=== PATIENT | female | born 1945 | race Caucasian/White ===

== ENCOUNTER 2016-05-14 07:11 | Day surgery (SDC) | payer MEDICARE, OTHER ==
[~2016-05-14] VITALS: Ht 170.2 cm; Wt 81.7 kg
[~2016-05-14 07:11] MED LIST: ALBU8.5H2 INHALATION; DOXY100C2 PO; FLUO10TA PO; HYDR25TA4 PO; LOSA100T29 PO; OMEP20CA11 PO; Sodium Chloride LOK Flush 10 mL Syringe IV PRN; fentaNYL-PF 50 mCg/mL 2 mL Inj IVPUSH PRN
[2016-05-14 07:36] VITALS: BP 145/80; PULSE 70; RESP 14; O2SAT 98
[2016-05-14] MEDS ORDERED: CETI10CA PO (07:40)
[2016-05-14] MEDS: 0.9% Sodium Chloride 1,000 ML IV SCH ×2 (08:02→08:30)
[2016-05-14 08:43] VITALS: BP 107/62; PULSE 60; RESP 14; O2SAT 94
[2016-05-14 08:53] VITALS: BP 113/71; PULSE 84; RESP 16; O2SAT 95
--- NOTE | 2016-05-14 09:03 | ENDO ---
[address] [address] ENDOSCOPY PROCEDURE PATIENT: BO ZABALA : 1945 MR#: [id number] ADMIT: 05/14/2016 JOB ID: [id number] DATE: 05/14/2016 PRIMARY PROVIDER: Alli Perez MD PROCEDURE: Colonoscopy with cold forceps polypectomies and biopsy. INDICATIONS: A 70-year-old female with a family history of colon cancer and a personal history of colon polyps returning for surveillance. EQUIPMENT: PCF H 180 AL. SEDATION: 1. 4 mg Versed. 2. 75 mcg fentanyl. COMPLICATIONS: None identified. BOWEL PREPARATION: Excellent. PROCEDURAL INFORMATION: After the risks and benefits were explained, written and verbal informed consent was obtained. The patient was brought into the endoscopy suite and placed into the left lateral decubitus position. Sedation was achieved as above. A digital rectal examination accomplished. This revealed the presence of moderate internal, external, nonbleeding, nonthrombosed hemorrhoids. The scope was introduced into the rectum and advanced to the cecum as identified by the appendiceal orifice and ileocecal valve. The scope was slowly withdrawn to carefully examine the mucosa for any defects or lesions. Multiple direct views were made through the dentate line for exclusion of pathology. The colon was decompressed. The scope removed from the patient who tolerated the procedure well. FINDINGS: Moderate diverticulosis was encountered through the sigmoid region. In the ascending colon, there were two very diminutive polyps removed with cold forceps. Moderate internal hemorrhoids were noted on direct views through the dentate line. In the cecum there was an unusual looking patch of mucosa that was probably simply hyperplastic but we could not be sure by visual characteristics alone and, therefore, took a biopsy from this location to exclude any adenomatous features. This was probably about 1 cm by about 1.5 cm and quite sessile in appearance. A photograph was taken. ENDOSCOPIC DIAGNOSES: 1. Irregular appearing patch of mucosa in the cecum. 2. Colon polyps. 3. Diverticulosis. 4. Hemorrhoids. RECOMMENDATIONS: 1. Await histopathology. 2. If there are any adenomatous features in the cecal biopsies, then early repeat colonoscopy in the next few months for formal polypectomy would be appropriate. Otherwise if this is simply hyperplastic mucosa, I think repeating colonoscopy in 3-5 years would be fine.
--- NOTE | 2016-05-15 13:26 | PATH ---
SURGICAL PATHOLOGY Attending Physician:Clinton Fatima CASE STATUS: Signed Out PATIENT NAME: BO ZABALA PID: [id number] : 1945 DATE COLLECTED:05/14/2016 16:48 SPECIMEN: 1: Colon, Biopsy 2: Colon, Biopsy CLINICAL HISTORY: A: CECAL POLYP B: ASCENDING COLON POLYPS FINAL DIAGNOSIS: 1.CECUM, POLYP, BIOPSY: SESSILE SERRATED ADENOMA. 2.ASCENDING COLON, POLYPS, BIOPSIES: TUBULAR ADENOMA. SESSILE SERRATED ADENOMA. ICD10 CODE D12.0 D12.2 GROSS DESCRIPTION: The specimen is received in two formalin filled containers labeled with the patient's name. 1). The specimen is sublabeled "cecal polyp" and consists of a 0.4 x 0.3 x 0.2 CM portion of tissue which is entirely submitted in cassette 1A. 2). The specimen is sublabeled "ascending colon polyps" and consists of 2 portions of tissue which aggregate to 0.5 x 0.4 x 0.3 CM. The specimen is entirely submitted in cassette 2A. 05/14/2016 [facility] MICRO DESCRIPTION: See diagnosis. ICD-9 CODES: CPT CODES: 1: 77069 2: 12132 Electronically Signed Out Esperanza Newell MD [facility] [address], [place] [address] Technical component performed at [facility], [facility] [address], [place], [address]
== END 2016-05-14 23:59 | disposition home or self-care (01) ==
LOC: END 07:11
PROVIDERS: ATTEND Internal Medicine Gastroenterology
DX: Z12.11 Encounter for screening for malignant neoplasm of colon (principal); Z86.010 Personal history of colon polyps; Z80.0 Family history of malignant neoplasm of digestive organs; D12.0 Benign neoplasm of cecum; D12.2 Benign neoplasm of ascending colon; K57.30 Diverticulosis of large intestine without perforation or abscess without bleeding; K64.8 Other hemorrhoids; I10 Essential (primary) hypertension; K21.9 Gastro-esophageal reflux disease without esophagitis; F33.42 Major depressive disorder, recurrent, in full remission
CPT/HCPCS: 45380; 88305; G0500; J2250; J7030

== ENCOUNTER 2016-10-06 12:55 | Day surgery (SDC) | payer MEDICARE, OTHER ==
[~2016-10-06] VITALS: Ht 170.2 cm; Wt 83.0 kg
[~2016-10-06 12:55] MED LIST changes: +0.9% Sodium Chloride 1,000 ML IV SCH; -ALBU8.5H2 INHALATION; -DOXY100C2 PO
[2016-10-06 13:12] VITALS: BP 140/69; PULSE 62; RESP 14; O2SAT 98
[2016-10-06] MEDS ORDERED: CETI10TA27 PO (13:20)
[2016-10-06 14:55] VITALS: BP 143/81; PULSE 55; RESP 14; O2SAT 99
[2016-10-06 15:13] VITALS: PULSE 56; RESP 16; O2SAT 99
--- NOTE | 2016-10-07 00:36 | ENDO ---
[address] [address] ENDOSCOPY PROCEDURE PATIENT: BO ZABALA : 1945 MR#: [id number] ADMIT: 10/06/2016 JOB ID: [id number] DATE: 10/06/2016 PRIMARY PROVIDER: Alli Perez MD PROCEDURE: Colonoscopy with hot snare polypectomy and saline injection. INDICATIONS: A 71-year-old female with a recent biopsy in the cecum that demonstrated serrated adenoma. She returns for completion polypectomy. EQUIPMENT: Iceberg-H180-AL. SEDATION: 7 mg Versed, 175 mcg fentanyl. COMPLICATIONS: None identified. BOWEL PREPARATION: Fair, adequate exam. PROCEDURE INFORMATION: After the risks and benefits were explained, written and verbal informed consent was obtained. The patient was brought into the endoscopy suite and placed into the left lateral decubitus position. Sedation was achieved as above. A digital rectal examination accomplished. No significant pathology appreciated. The scope was introduced into the rectum and advanced to the cecum as identified by the appendiceal orifice and ileocecal valve. The scope was slowly withdrawn to carefully examine the mucosa for any defects or lesions. Retroflexed views were avoided in the rectum. Multiple direct views were made through the dentate line for exclusion of pathology. The colon was decompressed, the scope removed from the patient who tolerated the procedure well. FINDINGS: Challenging navigation, this time through the sigmoid. Diverticulosis was encountered. In the cecum, we evaluated the photographs from the prior procedure and identified the subtle flat spreading abnormality consistent with a serrated adenoma. This was lifted with 2 cc of saline. We then successfully removed it in one hot snare bite using the Jumbo snare. This was too large to suction through the accessory channel of the scope and had to be bisected after it had been resected. This polyp was perhaps somewhere in the 1.5-18 mm by greatest dimension range. There were two other much smaller polyps that were even more subtle than this. Because of the histology of serrated adenoma, we elected to remove these with a standard polypectomy snare as well. Both of the smaller ones we used electrocautery as well. ENDOSCOPIC DIAGNOSES: 1. Cecal polyps. 2. Diverticulosis. RECOMMENDATIONS: 1. Await histopathology. 2. Repeat colonoscopy in three years.
--- NOTE | 2016-10-08 16:37 | PATH ---
SURGICAL PATHOLOGY Attending Physician:Clinton Fatima CASE STATUS: Signed Out PATIENT NAME: BO ZABALA PID: [id number] : 1945 DATE COLLECTED:10/06/2016 00:00 SPECIMEN: Colon, Polyp CLINICAL HISTORY: 1. CECAL POLYP X3 FINAL DIAGNOSIS: 1.CECAL POLYPS, BIOPSIES: MULTIPLE (APPROXIMATELY 18) PORTIONS OF SESSILE SERRATED ADENOMA. ICD10 K63.5 GROSS DESCRIPTION: Received in formalin, labeled with the patient' s name and "cecal", are multiple fragments of tariq, soft tissue ranging in size from 0.1 x 0.1 x 0.1 cm to 0.6 x 0.3 x 0.2 cm. The larger fragments are divided. All fragments are totally submitted in one cassette. ([id number]) MICRO DESCRIPTION: See diagnosis. ICD-9 CODES: CPT CODES: 1: 15152 Electronically Signed Out Bisi Mena MD [facility] [address], [place] [address] Technical component performed at [facility], [address], [place], [address]
== END 2016-10-06 23:59 | disposition home or self-care (01) ==
LOC: END 12:55
PROVIDERS: ATTEND Internal Medicine Gastroenterology
DX: D12.0 Benign neoplasm of cecum (principal); K57.30 Diverticulosis of large intestine without perforation or abscess without bleeding; I10 Essential (primary) hypertension; K75.81 Nonalcoholic steatohepatitis (NASH)
CPT/HCPCS: 45381; 45385; 99153; G0500; J7030